=== PATIENT | female | born 2005 | race Two or more races ===

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

== ENCOUNTER 2023-06-01 15:01 | Emergency (ER) | payer MEDICAID ==
[~2023-06-01] VITALS: Ht 157.5 cm; Wt 53.0 kg
[2023-06-01 15:45] VITALS: BP 109/70; PULSE 78; RESP 16; TEMP 98; O2SAT 98
== END 2023-06-01 18:31 | disposition home or self-care (01) ==
LOC: ER 15:01
DX: N75.0 Cyst of Bartholin's gland (principal); J45.909 Unspecified asthma, uncomplicated
CPT/HCPCS: 99281